=== PATIENT | female | born 2005 ===

== ENCOUNTER 2024-10-05 19:56 | Outpatient (REF) | payer OTHER, SELFPAY ==
--- NOTE | 2024-10-05 15:25 | PAPFT_PTH ---
PATIENT: Waylon Olivas LOC: [facility] U#:[id number] AGE/SX: 19/F ROOM: RE10/05/[address]: Soni Thao : 2005 BED: DIS: 10/05/2024 SPEC #: [id number] RECD: 10/08/24 13:00 STATUS: SANGEETHA REMila #: [id number] VICKY: 10/05/24 15:[address]: Soni Thao DEPT: [facility] Cytology RECD BY: Daisy Nagel ENTERED: 10/08/24 13:00 SP TYPE: PAPFT KASIE DR: Unknown,Unknown Tissues: 1 - CX/ENDOCX FOR PAP SMEARS Procedures: PAP THIN PREP/[facility] Screening Comments: [id number]
== END 2024-10-05 19:57 | disposition home or self-care (01) ==
LOC: LBN 19:56
PROVIDERS: Visit Provider Physician Assistant
DX: Z12.4 Encounter for screening for malignant neoplasm of cervix (principal)
CPT/HCPCS: 88142